=== PATIENT | male | born 1995 | race Caucasian/White ===

== ENCOUNTER 2023-02-27 10:00 | Outpatient (CLI) | payer OTHER ==
[2023-02-27 12:23] LABS: BASOPHILS % (AUTO) 0.4 %; EOSINOPHILS # (AUTO) 0.2 10^3/uL (0.0-0.7); EOSINOPHILS % (AUTO) 3.8 %; HCT - HEMATOCRIT 46.7 % (42.0-52.0); HGB - HEMOGLOBIN 16.1 g/dL (14.0-18.0); LYMPHOCYTES # (AUTO) 2.1 10^3/uL (1.5-3.5); LYMPHOCYTES % (AUTO) 44.9 %; MEAN CORPUSCULAR HEMOGLOBIN 29.1 pg (27.0-31.0); MEAN CORPUSCULAR HGB CONC 34.5 g/dL (32.0-36.0); MEAN CORPUSCULAR VOLUME 84.3 fL (80.0-94.0); MEAN PLATELET VOLUME 9.3 fL (7.4-11.4); MONOCYTES # (AUTO) 0.4 10^3/uL (0.0-1.0); MONOCYTES % (AUTO) 8.7 %; PLT - PLATELET COUNT 258 10^3/uL (130-450); RED BLOOD COUNT 5.54 10^6/uL (4.70-6.10); RED CELL DISTRIBUTION WIDTH 11.7 % (12.0-15.0); WHITE BLOOD COUNT 4.7 x10^3/uL (4.8-10.8)
[2023-02-27 13:29] LABS: ALBUMIN 5.1 g/dL (3.2-5.5); ALBUMIN/GLOBULIN RATIO 2.4 (1.0-2.2); BILIRUBIN,TOTAL 1.3 mg/dL (0.2-1.0); CREATININE 0.9 mg/dL (0.6-1.3); POTASSIUM 3.9 mmol/L (3.5-4.5); TOTAL PROTEIN 7.2 g/dL (6.4-8.9)
== END 2023-02-27 10:15 | disposition home or self-care (01) ==
LOC: LAB.N 10:00
PROVIDERS: ATTEND Physician Assistant Medical
DX: R10.9 Unspecified abdominal pain (principal)
CPT/HCPCS: 36415; 80053; 83690; 85025

== ENCOUNTER 2023-02-27 11:40 | Outpatient (CLI) | payer OTHER ==
--- NOTE | 2023-02-27 16:25 | XRAY Report ---
PROCEDURE: Abdomen 1 View X-Ray INDICATIONS: UNSPECIFIED ABDOMINAL PAIN TECHNIQUE: One view of the abdomen acquired. COMPARISON: None. FINDINGS: Surgical changes and devices: None. Bowel: Bowel gas pattern is normal. Soft tissues: No suspicious abdominal calcifications. Visualized solid organ contours appear normal in size. Bones: No suspicious bony lesions. IMPRESSION: No acute abdominal pathology. Reviewed by: Mo Banda MD on 02/27/2023 4:23 PM PDT Approved by: Mo Banda MD on 02/27/2023 4:23 PM PDT Station ID: [id number]
== END 2023-02-27 11:41 | disposition home or self-care (01) ==
LOC: DI 11:40
PROVIDERS: ATTEND Physician Assistant Medical
DX: R10.9 Unspecified abdominal pain (principal)
CPT/HCPCS: 36415; 80053; 83690; 85025

== ENCOUNTER 2023-08-24 10:28 | Outpatient (CLI) | payer OTHER ==
--- NOTE | 2023-08-25 14:56 | MRI Report ---
Lumbar Spine WO Clinical History: 28 years of age, Male, LOW BACK PAIN. Comparison: No priors available Technique: Multiplanar multisequence lumbar spine MRI without contrast was performed. 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 Rudimentary disc is seen at S1-2. Prior surgery: None. Vertebral bodies: Multiple small Schmorl's node of the lumbar spine. Alignment: Mild straightening of the lumbar spine. Bone marrow: Small vertebral hemangioma in L1 vertebral body. Intervertebral discs: Multilevel disc desiccation. The conus medullaris is normal in contour, signal intensity, and location. The tip of the conus is at L1-L2.. The following axial levels are detailed below: T12-L1: No central canal stenosis. No right neuroforaminal stenosis. No left neuroforaminal stenosis. L1-L2: No central canal stenosis. No right neuroforaminal stenosis. No left neuroforaminal stenosis. L2-L3: No central canal stenosis. No right neuroforaminal stenosis. No left neuroforaminal stenosis. L3-L4: No central canal stenosis. No right neuroforaminal stenosis. No left neuroforaminal stenosis. L4-L5: Left foraminal disc protrusion, resulting in narrowing of the left lateral recess. No central canal stenosis. No right neuroforaminal stenosis. Mild left neuroforaminal stenosis. L5-S1: No central canal stenosis. No right neuroforaminal stenosis. No left neuroforaminal stenosis. Visualized sacrum and pelvis: Visualized sacrum is unremarkable. No abdominal aortic aneurysm. IMPRESSION: Left foraminal disc protrusion at L4-5, resulting in narrowing of the left lateral recess and mild le ft neuroforaminal stenosis. Reviewed by: Leana Bishop MD on 08/24/2023 7:21 PM PDT Approved by: Leana Bishop MD on 08/24/2023 7:21 PM PDT Station ID: [id number]
== END 2023-08-24 10:29 | disposition home or self-care (01) ==
LOC: DI 10:28
PROVIDERS: ATTEND Nurse Practitioner Family
DX: M51.26 Other intervertebral disc displacement, lumbar region (principal); M48.061 Spinal stenosis, lumbar region without neurogenic claudication

== ENCOUNTER 2023-09-14 21:20 | Outpatient (CLI) | payer OTHER | END 2023-09-14 21:21 | disposition E | LOC: EMS 21:20 ==